=== PATIENT | male | born 1985 | race Caucasian/White ===

== ENCOUNTER 2019-01-20 17:41 | Emergency (ER) | payer OTHER ==
[2019-01-20] MEDS ORDERED: Ibuprofen 600 MG Tab PO ONE (18:13)
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
== END 2019-01-20 20:22 | disposition home or self-care (01) ==
LOC: JP.ED 17:41
DX: S09.90XA Unspecified injury of head, initial encounter (principal); S43.101A Unspecified dislocation of right acromioclavicular joint, initial encounter; F17.210 Nicotine dependence, cigarettes, uncomplicated; V18.4XXA Pedal cycle driver injured in noncollision transport accident in traffic accident, initial encounter
CPT/HCPCS: 73030; 99283; A9270